=== PATIENT | male | born 1965 | race Caucasian/White ===

== ENCOUNTER 2020-03-19 14:33 | Emergency (ER) | payer SELFPAY ==
[~2020-03-19] VITALS: Ht 180.3 cm; Wt 97.7 kg
[2020-03-19] MEDS ORDERED: IV NORMAL SALINE 1000ML BAG 1,000 ML IV ONE (15:00)
--- NOTE | 2020-03-19 15:07 | PHYS DOC ---
Past Medical History Past Medical History: Hypertension (LIZZY DAWKINS APRN) Past Surgical History: No Surgical History (JUANCHOLIZZY APRN) Smoking Status: Never Smoker Additional Information: CHEWS Alcohol Use: Heavy Additional Information: AT LEAST 1 PINT OF RUM DAILY (JUANCHOLIZZY APRN) General Adult EDM: Chief Complaint: WITHDRAWL HPI: HPI: Patient is a 54 year old male patient who presents with withdrawal symptoms for the past couple days. Patient states he has been consuming at least 1 pint ETOH daily for the past several years, with "significantly more" intake over weekends. States his last drink was 2 nights ago, he only had 3 drinks that night, and has been feeling malaise, chills, and ill for the past day. States he has never gone that long without ETOH, states he does want to go through treatment and he thinks he could do it as he has good support at home. Denies discomfort. States he had gone to urgent care today and was told his blood pressure was too high and he needed to be seen in the ER. patient hypertensive on arrival to ER. States his brain feels like it's just cloudy. Denies discomfort, denies vomiting. States he just feels a little nauseous. He has not been on blood pressure medications in the past, he had been taking an OTC supple ment to help his blood pressure for a while but has had nothing recently. (JUANCHOLIZZY APRN) Review of Systems: Review of Systems: Constitutional: Denies fever Does report he has felt some chills fort he past couple days [] Eyes: Denies change in visual acuity. [] HENT: Denies nasal congestion or sore throat. [] Respiratory: Denies cough or shortness of breath. [] Cardiovascular: Denies chest pain or edema. [] GI: Denies abdominal pain, nausea, vomiting, bloody stools or diarrhea. [] : Denies dysuria. [] Musculoskeletal: Denies back pain or joint pain. [] Integument: Denies rash. [] Neurologic: Denies headache, focal weakness or sensory changes. [] Reports he has felt a tremor for the past few days Endocrine: Denies polyuria or polydipsia. [] Lymphatic: Denies swollen glands. [] Psychiatric: Denies depression or anxiety. [] Reporting he feels a little anxious (LIZZY DAWKINS APRN) Heart Score: Risk Factors: Risk Factors: DM, Current or recent (<one month) smoker, HTN, HLP, family history of CAD, obesity. Risk Scores: Score 0 - 3: 2.5% MACE over next 6 weeks - Discharge Home Score 4 - 6: 20.3% MACE over next 6 weeks - Admit for Clinical Observation Score 7 - 10: 72.7% MACE over next 6 weeks - Early Invasive Strategies (LIZZY DAWKINS APRN) Allergies: Allergies: Allergies Coded Allergies Type Severity Reaction Last Updated Verified No Known Drug Allergies 03/19/20 No (LIZZY DAWKINS APRN) Physical Exam: PE: Constitutional: Well developed, well nourished, no acute distress, non-toxic appearance. appears uncomfortable and anxious[] HENT: Normocephalic, atraumatic, bilateral external ears normal, oropharynx moist, no oral exudates, nose normal. [] Eyes: PERRLA, EOMI, conjunctiva normal, no discharge. [] Neck: Normal range of motion, no tenderness, supple, no stridor. [] Cardiovascular:Heart rate regular rhythm, no murmur [] Lungs & Thorax: Bilateral breath sounds clear to auscultation [] Abdomen: Bowel sounds normal, soft, no tenderness, no masses, no pulsatile masses. [] Skin: Warm, dry, no erythema, no rash. [] Back: No tenderness, no CVA tenderness. [] Extremities: No tenderness, no cyanosis, no clubbing, ROM intact, no edema. [] Neurologic: Alert and oriented X 3, normal motor function, normal sensory function, no focal deficits noted. [] Psychologic: Affect normal, judgement normal, mood normal. [] (LIZZY DAWKINS APRN) Current Patient Data: Vital Signs: Vital Signs Date Time Temp Pulse Resp B/P (MAP) Pulse Ox O2 Delivery O2 Flow Rate FiO2 03/19/20 14:50 98.1 95 24 242/142 (175) 97 Room Air 98.1 (LIZZY DAWKINS APRN) EKG: EKG: [] (LIZZY DAWKINS APRN) Radiology/Procedures: Radiology/Procedures: REASON: malaise PROCEDURE: CHEST AP ONLY EXAM: CHEST 1 VIEW History: Malaise COMPARISON: None available. TECHNIQUE: Single portable radiograph of the chest FINDINGS: The cardiac silhouette is unremarkable. The lungs are clear bilaterally. The costophrenic sulci are clear and well demarcated. IMPRESSION: No radiographic evidence of an acute cardiopulmonary process. Electronically signed by: Kahlil Das MD (03/19/2020 3:17 PM) [id number] DICTATED and SIGNED BY: KAHLIL DSA MD DATE: 03/19/20 [id number] [] (LIZZY DAWKINS APRN) Course & Med Decision Making: Course & Med Decision Making Pertinent Labs and Imaging studies reviewed. (See chart for details) []Discussed lab findings with patient, and plan for mental health screening at this time. patient in agreement. Reviewed BP with patient, noting improvement from admission from 248/ to 202/ at this time, following anxiolytics and Lisinopril. Patient reporting his head feels much better, advised with his long- lasting hypertension, we do not want to rapidly drop his blood pressure and plan for slow reduction. Awaiting mental health evaluation @1800 mental health screener at bedside. Care transferred to Carla Alvarado, pending evaluation of Mental health screener. (LIZZY DAWKINS APRN) Course & Med Decision Making 1830 assumed care. PAT team recommended Librium. Rx given to patient. His blood pressure was in the 220s over 140s. He was given labetalol and clonidine in the ED. Blood pressure came down. Discharged him with prescription for clonidine and encouraged him to follow-up with the PCP. He appears to have history of hypertension that has been untreated. He has no headache, no chest pain, no shortness of breath. (AMANDA ALVARADO APRN) Dragon Disclaimer: Dragon Disclaimer: This electronic medical record was generated, in whole or in part, using a voice recognition dictation system. (LIZZY DAWKINS APRN) Departure Departure Impression: Primary Impression: Alcohol withdrawal Qualified Codes: F10.239 - Alcohol dependence with withdrawal, unspecified Additional Impression: Hypertension Qualified Codes: I10 - Essential (primary) hypertension Condition: GOOD Referrals: NO PCP (PCP) Patient Instructions: Alcohol Withdrawal, Hypertension Additional Instructions: Make sure you are taking the blood pressure medications each day to manage your blood pressure better. Follow the recommendations from the mental health counselor Scripts Clonidine Hcl (CLONIDINE HCL) 0.1 Mg Tablet 1 TAB PO TID PRN PRN for HYPERTENSION, #30 TAB 2 Refills Prov: AMANDA ALVARADO APRN 03/19/20 Chlordiazepoxide/Clidinium Br (LIBRAX CAPSULE) 1 Each Capsule 1 CAP PO TID PRN for WITHDRAWAL IRRITABILITY, #30 CAP 3 Refills Librium 25mg TID prn for withdrwal symptoms Prov: AMANDA ALVARADO APRN 03/19/20 LIZZY DAWKINS APRN Mar 19, 2020 15:07 AMANDA ALVARADO APRN Mar 19, 2020 19:01
[2020-03-19 15:13] LABS: BASO % 1 % (0-3); EOS # 0.1 x10^3/uL (0.0-0.7); EOS % 1 % (0-3); HEMOGLOBIN 15.9 g/dL (13.0-17.5); LYMPH # 0.6 x10^3/uL (1.0-4.8); LYMPH % 10 % (24-48); MEAN CORPUSCULAR HEMOGLOBIN 32 pg (25-35); MEAN CORPUSCULAR HGB CONC 34 g/dL (31-37); MEAN CORPUSCULAR VOLUME 93 fL (79-100); MONO # 0.5 x10^3/uL (0.0-1.1); MONO % 8 % (0-9); NEUT # 4.8 x10^3/uL (1.8-7.7); NEUT % 80 % (31-73); PLATELET COUNT 178 x10^3/uL (140-400); RED BLOOD COUNT 5.04 x10^6/uL (4.30-5.70); RED CELL DISTRIBUTION WIDTH 12.7 % (11.5-14.5); WHITE BLOOD COUNT 6.1 x10^3/uL (4.0-11.0)
--- NOTE | 2020-03-19 15:19 | RAD ---
EXAM: CHEST 1 VIEW History: Malaise COMPARISON: None available. TECHNIQUE: Single portable radiograph of the chest FINDINGS: The cardiac silhouette is unremarkable. The lungs are clear bilaterally. The costophrenic sulci are clear and well demarcated. IMPRESSION: No radiographic evidence of an acute cardiopulmonary process. Electronically signed by: Kahlil Das MD (03/19/2020 3:17 PM) [id number]
[2020-03-19 15:37] LABS: CALCIUM 9.3 mg/dL (8.5-10.1); GFR 77.9; POTASSIUM 3.7 mmol/L (3.5-5.1)
[2020-03-19 15:41] LABS: ACETAMIN < 2 mcg/ml (10-30); ETHANOL < 10 mg/dL (0-10)
[2020-03-19 15:50] LABS: ALBUMIN 3.8 g/dL (3.4-5.0); ALBUMIN/GLOBULIN RATIO 0.9 (1.0-1.7); TOTAL BILIRUBIN 1.2 mg/dL (0.2-1.0); TOTAL PROTEIN 8.1 g/dL (6.4-8.2)
[2020-03-19] MEDS ORDERED: LISINOPRIL 10 MG TABLET PO ONE (16:00)
[2020-03-19 16:26] LABS: BILIRUBIN,URINE SMALL (NEG); CLARITY,URINE CLOUDY; COLOR,URINE AMBER; NITRITE,URINE NEGATIVE (NEG); PROTEIN,URINE 100 mg/dL (NEG-TRACE)
[2020-03-19 16:30] LABS: BACTERIA,URINE 0 /HPF (0-FEW); BARBITURATES NEG (NEG); BENZODIAZEPINES NEG (NEG); CANNABINOIDS NEG (NEG); COCAINE NEG (NEG); METHADONE NEG (NEG); OPIATES NEG (NEG); PHENCYCLIDINE NEG (NEG); RBC,URINE 0 /HPF (0-2); WBC,URINE OCC /HPF (0-4)
[2020-03-19 16:34] LABS: AMPHETAMINE/METHAMPHETAMINE NEG (NEG)
[2020-03-19] MEDS ORDERED: CHLO1CAP PO (19:09)
[2020-03-19] MEDS ORDERED: LABETALOL 20 MG/4 ML DISP.SYRIN. IVP ONE (19:30)
[2020-03-19] MEDS ORDERED: cloNIDine HCL 0.1 MG TABLET PO ONE (19:30)
[2020-03-19] MEDS ORDERED: CLON0.1T PO (19:38)
[2020-03-19 20:00] VITALS: BP 211/127
== END 2020-03-19 20:06 | disposition home or self-care (01) ==
LOC: ER 14:33
DX: F10.239 Alcohol dependence with withdrawal, unspecified (principal); Y90.0 Blood alcohol level of less than 20 mg/100 ml; I10 Essential (primary) hypertension; M79.10 Myalgia, unspecified site; F17.220 Nicotine dependence, chewing tobacco, uncomplicated
CPT/HCPCS: 36415; 71045; 80053; 80307; 80329; 81001; 83690; 83735; 84484; 85025; 96361; 96374; 96375; 96376; 99285; G0480; J2060; J3490; J7030